=== PATIENT | female | born 1970 | race African-American/Black ===

== ENCOUNTER 2019-05-12 06:44 | Emergency (ER) | payer OTHER ==
[~2019-05-12] VITALS: Ht 154.9 cm; Wt 94.8 kg
[2019-05-12] MEDS ORDERED: METFORMIN HCL500 MG PO (07:18)
[2019-05-12] MEDS ORDERED: LEVOXYL150 MCG PO (07:19)
[2019-05-12 07:20] LABS: ABSOLUTE NEUTROPHILS 6.7 thou/uL (1.4-8.2); BASOPHILS 0.4 % (0.0-2.0); HEMATOCRIT 39.8 % (37.0-47.0); HEMOGLOBIN 13.1 gm/dL (12.0-15.0); LYMPHOCYTES 20.7 % (24.0-44.0); MCH 27.7 pg (26.0-34.0); MCHC 32.9 g/dL (28.0-37.0); MCV 84.2 fL (80.0-100.0); MONOCYTES 4.6 % (1.0-8.0); PLATELET COUNT 273 thou/uL (150-400); POLYS 74.3 % (36.0-66.0); RBC 4.73 mil/uL (4.20-5.00); RDW 13.7 % (10.5-14.5)
[2019-05-12] MEDS ORDERED: AMITRIPTYLINE H10 M3 PO (07:20)
[2019-05-12] MEDS ORDERED: XANAX1 MG PO (07:20)
[2019-05-12] MEDS ORDERED: MIRTAZAPINE7.5 MG PO (07:20)
[2019-05-12] MEDS ORDERED: PROAIR HFA8.5 GM INH (07:21)
[2019-05-12 07:23] LABS: URINE BILIRUBIN NEGATIVE (Negative); URINE BLOOD NEGATIVE (Negative); URINE CLARITY CLEAR; URINE COLOR YELLOW; URINE GLUCOSE-RANDOM* 3+ (Negative); URINE KETONES NEGATIVE (Negative); URINE LEUKOCYTES-REFLEX NEGATIVE (Negative); URINE NITRITE-REFLEX NEGATIVE (Negative); URINE PROTEIN (DIPSTICK) TRACE (Negative); URINE UROBILINOGEN 0.2 E.U./dl (0.2-1.0)
[2019-05-12 07:36] LABS: CALCIUM 10.2 mg/dL (8.5-10.1); CREATININE 1.2 mg/dL (0.6-1.0)
[2019-05-12 07:37] LABS: POTASSIUM 4.5 mmol/L (3.5-5.1)
[2019-05-12 07:40] LABS: AMP/METHAMP Negative (Negative); BARBITURATES Negative (Negative); BENZODIAZEPINES Negative (Negative); COCAINE Negative (Negative); METHADONE Negative (Negative); OPIATES Negative (Negative); PCP POSITIVE (Negative)
[2019-05-12 07:40] LABS: TOTAL BILIRUBIN 0.2 mg/dL (<0.1-1.0); TOTAL PROTEIN 8.6 g/dL (6.4-8.2)
[2019-05-12] MEDS ORDERED: ZOFRAN ODT4 MG PO (08:34)
[2019-05-12] MEDS ORDERED: PROTONIX40 M1 PO (08:34)
[2019-05-12] MEDS ORDERED: PHENERGAN 25 MG25 MG PO (08:34)
[2019-05-12] MEDS ORDERED: PROMETHAZI6.25 MG/5 PO (09:22)
[2019-05-12 09:41] VITALS: BP 132/72
== END 2019-05-12 09:42 | disposition home or self-care (01) ==
LOC: ER 06:44
PROVIDERS: Emergency Medicine
DX: R11.2 Nausea with vomiting, unspecified (principal); R10.31 Right lower quadrant pain